=== PATIENT | female | born 1990 | race Caucasian/White ===

== ENCOUNTER 2022-02-19 22:19 | Emergency (ER) | payer OTHER ==
[2022-02-19 23:24] LABS: Appearance,Urine Cloudy (Clear); Bacteria,Urine Rare /hpf; Bilirubin,Urine Negative (Negative); Blood,Urine Negative (Negative); Color,Urine Yellow; Glucose,Urine (UA) Negative (Negative); Ketones,Urine 2+ (Negative); Leukocyte Esterase,Urine Negative (Negative); Mucus,Urine Moderate /hpf; Nitrite,Urine Negative (Negative); PH, Urine 6.5 (5.0-8.0); Protein,Urine Trace (Negative); RBC,Urine 1 /hpf (0-5); Specific Gravity,Urine 1.021 (1.001-1.035); Squamous Epithelial Cell,Urine 6 /hpf (0-4); WBC,Urine 1 /hpf (0-5)
[2022-02-20] MEDS ORDERED: ONDANSETRON ODT 4 MG TAB PO STA (00:10)
--- NOTE | 2022-02-20 00:14 | ED ---
General Adult HPI - General Chief complaint: Nausea/Vomiting/Diarrhea Stated complaint: Sick from Antibiotics Time Seen by Provider: 02/20/22 00:03 Source: patient, RN notes reviewed, old records reviewed Mode of arrival: ambulatory Limitations: no limitations - History of Present Illness Initial comments: This is a 31-year-old, nontoxic-appearing female that presents with complaints of nausea, loss of appetite, fever or chills and malaise since Saturday. Patient was diagnosed a urinary tract infection and put on Macrobid. She took her scheduled doses on Saturday and Saturday when she became sick. She did call her doctor and he switched her from Macrobid to Cipro but continues to have symptoms. She states that she does have generalized malaise, loss of appetite, fever and chills. Patient denies any other medical history. -: days(s) (3) Radiation: non-radiation Severity scale (1-10): 0 Associated Symptoms: fever/chills, loss of appetite, malaise, nausea/vomiting Treatments Prior to Arrival: other (cipro) - Related Data Allergies Allergy/AdvReac Type Severity Reaction Status Date / Time amoxicillin Allergy Rash/Hives Verified 02/19/22 22:35 Review of Systems ROS Statement: Those systems with pertinent positive or pertinent negative responses have been documented in the HPI. ROS Other: All systems not noted in ROS Statement are negative. Past Medical History Past Medical History: No Reported History History of Any Multi-Drug Resistant Organisms: None Reported Past Surgical History: Section Past Psychological History: Anxiety Smoking Status: Former smoker Past Alcohol Use History: None Reported Past Drug Use History: None Reported General Exam Limitations: no limitations General appearance: alert, in no apparent distress Head exam: Present: atraumatic Eye exam: Present: normal appearance. Absent: scleral icterus, conjunctival injection ENT exam: Present: mucous membranes moist Expanded Throat exam: negative: tonsillar erythema, tonsillar exudate, R peritonsillar mass, L peritonsillar mass Neck exam: Present: normal inspection, full ROM. Absent: tenderness, meningismus Respiratory exam: Present: normal lung sounds bilaterally. Absent: respiratory distress, accessory muscle use Cardiovascular Exam: Present: regular rate, normal heart sounds GI/Abdominal exam: Present: soft. Absent: distended, rigid Extremities exam: Present: normal capillary refill. Absent: pedal edema Back exam: Absent: tenderness, CVA tenderness (R), CVA tenderness (L) Neurological exam: Present: alert, oriented X3 Psychiatric exam: Present: normal affect, normal mood Skin exam: Present: warm, dry, normal color. Absent: cyanosis, diaphoretic, petechiae, pallor Course Vital Signs 02/19/22 02/20/22 02/20/22 22:30 01:08 02:38 Temperature 97.8 F 98 F 98 F Pulse Rate 89 80 61 Respiratory 20 18 18 Rate Blood Pressure 119/72 108/77 116/79 O2 Sat by Pulse 98 96 98 Oximetry Medical Decision Making - Medical Decision Making Patient presents with nausea and vomiting after taking Cipro. Patient is afebrile vital signs are stable. She was given Tylenol and Zofran for her nausea and headache. Influenza and coronavirus swabs are negative. UA shows negative , rare bacteria with no nitrites. She was directed to continue her antibiotics and drink plenty of fluids when taking the medication. - Lab Data Lab Results 02/19/22 02/19/22 02/20/22 Range/Units 22:53 22:53 01:02 Urine Color Yellow Urine Appearance Cloudy H (Clear) Urine pH 6.5 (5.0-8.0) Ur Specific [place] 1.021 (1.001-1.035) Urine Protein Trace H (Negative) Urine Glucose (UA) Negative (Negative) Urine Ketones 2+ H (Negative) Urine Blood Negative (Negative) Urine Nitrite Negative (Negative) Urine Bilirubin Negative (Negative) Urine Urobilinogen 2.0 (<2.0) mg/dL Ur Leukocyte Esterase Negative (Negative) Urine RBC 1 (0-5) /hpf Urine WBC 1 (0-5) /hpf Ur Squamous Epith Cells 6 H (0-4) /hpf Urine Bacteria Rare H (None) /hpf Urine Mucus Moderate H (None) /hpf Urine HCG, Qual Not Detected (Not Detectd) Coronavirus (PCR) (Not Detectd) Influenza Type A RNA Not Detected (Not Detectd) Influenza Type B (PCR) Not Detected (Not Detectd) 02/20/22 Range/Units 01:02 Urine Color Urine Appearance (Clear) Urine pH (5.0-8.0) Ur Specific [place] (1.001-1.035) Urine Protein (Negative) Urine Glucose (UA) (Negative) Urine Ketones (Negative) Urine Blood (Negative) Urine Nitrite (Negative) Urine Bilirubin (Negative) Urine Urobilinogen (<2.0) mg/dL Ur Leukocyte Esterase (Negative) Urine RBC (0-5) /hpf Urine WBC (0-5) /hpf Ur Squamous Epith Cells (0-4) /hpf Urine Bacteria (None) /hpf Urine Mucus (None) /hpf Urine HCG, Qual (Not Detectd) Coronavirus (PCR) Not Detected (Not Detectd) Influenza Type A RNA (Not Detectd) Influenza Type B (PCR) (Not Detectd) Disposition Clinical Impression: Medication side effect Disposition: HOME SELF-CARE Condition: Good Instructions (If sedation given, give patient instructions): Acute Nausea and Vomiting (ED) Additional Instructions: Increase your fluid intake when taking antibiotics. You can eat crackers but avoid dairy as it may affect how Cipro works. You can take Zofran as needed fo r any nausea. Follow-up with the primary care doctor this week for recheck of your urinalysis. Is patient prescribed a controlled substance at d/c from ED?: No Referrals: Benton Teran MD [Primary Care Provider] - 1-2 days Time of Disposition: 02:31
[2022-02-20] MEDS ORDERED: ACETAMINOPHEN TAB 500 MG TAB PO STA (01:06)
[2022-02-20 01:09] VITALS: RESP 18; TEMP 98
[2022-02-20] MEDS ORDERED: ONDANSETRON 4 MG ODT STARTER PACK 2 TAB BTL PO STA (02:29)
[2022-02-20 02:41] VITALS: BP 116/79; PULSE 61
== END 2022-02-20 02:38 | disposition home or self-care (01) ==
LOC: EC 22:19
DX: R11.2 Nausea with vomiting, unspecified (principal); R50.9 Fever, unspecified; R53.81 Other malaise; R51.9 Headache, unspecified; T37.8X5A Adverse effect of other specified systemic anti-infectives and antiparasitics, initial encounter; Z87.891 Personal history of nicotine dependence; Z20.822 Contact with and (suspected) exposure to COVID-19
CPT/HCPCS: 81001; 81025; 87502; 87635; 99284

== ENCOUNTER 2022-03-26 20:03 | Emergency (ER) | payer OTHER ==
[2022-03-26 20:51] VITALS: BP 126/82; PULSE 80; RESP 18; TEMP 98.5
[2022-03-26 21:41] LABS: Appearance,Urine Clear (Clear); Bilirubin,Urine Negative (Negative); Blood,Urine Negative (Negative); Color,Urine Light Yellow; Glucose,Urine (UA) Negative (Negative); Ketones,Urine Negative (Negative); Leukocyte Esterase,Urine Negative (Negative); Nitrite,Urine Negative (Negative); Protein,Urine Negative (Negative); Specific Gravity,Urine 1.015 (1.001-1.035); Urobilinogen,Urine <2.0 mg/dL (<2.0)
== END 2022-03-27 01:21 | disposition left against medical advice (07) ==
LOC: EC 20:03
DX: Z53.21 Procedure and treatment not carried out due to patient leaving prior to being seen by health care provider (principal)
CPT/HCPCS: 81003; 81025; 99499